=== PATIENT | male | born 1950 | race Caucasian/White ===

== ENCOUNTER 2016-08-28 19:42 | Inpatient (IN) | payer OTHER ==
[~2016-08-28] VITALS: Ht 175.3 cm; Wt 66.3 kg
[2016-08-28 20:32] LABS: HEMATOCRIT 43.6 % (38.0-50.0); MCH 33.8 PG (29.0-34.0); MCHC 35.1 G/DL (30.0-36.0); MCV 96.5 FL (86-99); PLATELET COUNT 169 K/uL (156-360); RBC DIS.WIDTH-CV 13.2 % (11.8-14.6); RBC DIS.WIDTH-SD 47.1 % (39-53); RED BLOOD COUNT 4.52 M/uL (4.00-5.50); WHITE BLOOD COUNT 14.3 K/uL (4.1-10.2)
[2016-08-28 20:39] LABS: CHLORIDE 91 mEq/L (99-109); POTASSIUM 4.2 mEq/L (3.7-5.4); SODIUM 126 mEq/L (136-147)
[2016-08-28 20:41] LABS: GLUCOSE 146 mg/dL (70-99)
[2016-08-28 20:42] LABS: ANION GAP 18 MEQ/L (2-14)
[2016-08-28 20:45] LABS: GFR ESTIMATE (CALCULATED) 11 mL/min/
[2016-08-28 20:46] LABS: UREA NITROGEN (BUN) 57 mg/dL (9-23)
[2016-08-28 20:52] LABS: TROP-I INTERPRETATION NEGATIVE; TROPONIN-I 0.04 ng/mL (0.0-0.30)
[2016-08-28 21:12] LABS: TOTAL BILIRUBIN 0.4 mg/dL (0.0-1.0)
[2016-08-28 21:13] LABS: ALKALINE PHOSPHATASE 72 IU/L (3-129)
[2016-08-28 21:16] LABS: DIRECT BILIRUBIN 0.2 mg/dL (0.0-0.3)
[2016-08-28 21:17] LABS: LIPASE 43 U/L (1.0-51.0)
[2016-08-28] MEDS ORDERED: SIMVASTATIN20 MG PO (23:16)
[2016-08-28] MEDS ORDERED: LOTENSIN10 MG PO (23:16)
[2016-08-28] MEDS ORDERED: ADVIL,NUPRIN,M200 MG PO (23:17)
[2016-08-29] VITALS (7 sets, daily range): BP systolic 129–157; BP diastolic 66–87
[2016-08-29 02:42] LABS: BASE EXCESS -6.4 mEq/L (-3 to +3); BICARBONATE 18.2 mEq/L (22-26); CARBOXY HGB 1.5 % (0-5); COMMENTS - BLOOD GASES C+; DEVICE NCH; METHEMOGLOBIN 1.3 % (0-1.5); O2 FLOW 10 L/MIN; PCO2 33 mm Hg (35-45); PO2 88 mm Hg (80-100); SITE LR; pH 7.35 (7.35-7.45)
[2016-08-29 02:43] LABS: MECHANICAL RATE 16 resp/min
[2016-08-29 03:05] LABS: D-DIMER ELISA 1.05 mg/L FEU (< 0.57)
[2016-08-29 03:19] LABS: TROP-I INTERPRETATION NEGATIVE; TROPONIN-I 0.03 ng/mL (0.0-0.30)
[2016-08-29 04:03] LABS: MAGNESIUM 2.3 mg/dL (1.3-2.7)
[2016-08-29 04:06] LABS: INTER. NORMALIZED RATIO 0.9; PTT 31.4 (25-32)
[2016-08-29 04:15] LABS: PROTHROMBIN TIME 9.4 (9.2-11.2)
[2016-08-29 07:19] LABS: ADD MIUA? YES; BILIRUBIN NEGATIVE; BLOOD MODERATE; COLOR YELLOW ((YELLOW)); GLUCOSE (STRIP) NEGATIVE; KETONES NEGATIVE; LEUKOCYTES NEGATIVE; NITRITE NEGATIVE; PROTEIN (STRIP) 30; SPECIFIC GRAVITY 1.012 (1.000-1.030); UROBILINOGEN 0.2 MG/DL (0.2-1.0)
[2016-08-29 08:06] LABS: BACTERIA 1+ /HPF; BUDDING YEAST 2+; EPITHELIAL CELLS NONE SEEN /HPF; GRANULAR CASTS 0-5 /LPF; HYALINE CASTS 0-5 /LPF; MUCUS TRACE /LPF; RED BLOOD CELLS 0-5 /HPF (0-5); UCUL ADDED? NO; WHITE BLOOD CELLS 0-5 /HPF (0-5)
[2016-08-29 09:15] LABS: TROP-I INTERPRETATION NEGATIVE; TROPONIN-I 0.02 ng/mL (0.0-0.30)
[2016-08-29 10:21] LABS: ALKALINE PHOSPHATASE 60 IU/L (3-129); ANION GAP 12 MEQ/L (2-14); CHLORIDE 99 MEQ/L (99-109); GLUCOSE 187 mg/dL (70-99); POTASSIUM 3.9 MEQ/L (3.7-5.4); SAMPLE HEMOLYSIS CHECK 0; SAMPLE ICTERIC CHECK 0; SAMPLE LIPEMIA CHECK 0; SODIUM 127 MEQ/L (136-147); TOTAL BILIRUBIN 0.3 MG/DL (0.0-1.0); UREA NITROGEN (BUN) 47 mg/dL (9-23)
[2016-08-29 10:22] LABS: GFR ESTIMATE (CALCULATED) 25 mL/min/
[2016-08-29 12:26] LABS: HEMATOCRIT 41.7 % (38.0-50.0); MCH 33.9 PG (29.0-34.0); MCHC 34.3 G/DL (30.0-36.0); MCV 98.8 FL (86-99); MEAN PLAT.VOLUME 10.2 uM^3 (9.0-12.4); PLATELET COUNT 155 K/uL (156-360); RBC DIS.WIDTH-CV 13.3 % (11.8-14.6); RED BLOOD COUNT 4.22 M/uL (4.00-5.50); WHITE BLOOD COUNT 13.1 K/uL (4.1-10.2)
[2016-08-29 13:02] LABS: EOSINOPHIL (%) 0 % (0-5); IMMATURE GRANULOCYTE (%) 0.6 % (0.0-0.7); IMMATURE GRANULOCYTE COUNT 0.1 K/uL; INSTRUMENT ABS NEUTROPHIL CT 12.1 K/uL; LYMPHOCYTE COUNT 0.5 K/uL (1.0-2.8); MONOCYTE (%) 2.8 % (3-12); MONOCYTE COUNT 0.4 K/uL (0-0.8); NEUTROPHIL (%) 92.4 % (45-76); NEUTROPHIL COUNT 12.1 K/uL (1.8-6.4)
[2016-08-29 22:33] LABS: INFLUENZA A VIRAL ANTIGEN NEGATIVE; INFLUENZA B VIRAL ANTIGEN POSITIVE
[2016-08-30] VITALS (7 sets, daily range): BP systolic 139–168; BP diastolic 69–81
[2016-08-30 06:33] LABS: HEMATOCRIT 37.2 % (38.0-50.0); MCH 33.8 PG (29.0-34.0); MCHC 34.1 G/DL (30.0-36.0); MCV 98.9 FL (86-99); MEAN PLAT.VOLUME 10.2 uM^3 (9.0-12.4); PLATELET COUNT 176 K/uL (156-360); RBC DIS.WIDTH-CV 13.4 % (11.8-14.6); RED BLOOD COUNT 3.76 M/uL (4.00-5.50); WHITE BLOOD COUNT 11.5 K/uL (4.1-10.2)
[2016-08-30 06:53] LABS: ALKALINE PHOSPHATASE 54 IU/L (3-129); ANION GAP 9 MEQ/L (2-14); CHLORIDE 104 MEQ/L (99-109); DIRECT BILIRUBIN 0.1 mg/dL (0.0-0.3); GLUCOSE 164 mg/dL (70-99); SAMPLE HEMOLYSIS CHECK 0; SAMPLE ICTERIC CHECK 0; SAMPLE LIPEMIA CHECK 0; TOTAL BILIRUBIN 0.3 MG/DL (0.0-1.0); UREA NITROGEN (BUN) 30 mg/dL (9-23); URIC ACID 3.5 mg/dL (3.1-9.2)
[2016-08-30 06:55] LABS: GFR ESTIMATE (CALCULATED) 59 mL/min/; POTASSIUM 4.7 MEQ/L (3.7-5.4); SODIUM 135 MEQ/L (136-147)
[2016-08-30 07:04] LABS: EOSINOPHIL (%) 0 % (0-5); IMMATURE GRANULOCYTE COUNT 0.4 K/uL; INSTRUMENT ABS NEUTROPHIL CT 9.9 K/uL; LYMPHOCYTE COUNT 0.6 K/uL (1.0-2.8); MONOCYTE (%) 5.6 % (3-12); MONOCYTE COUNT 0.6 K/uL (0-0.8); NEUTROPHIL (%) 86.1 % (45-76); NEUTROPHIL COUNT 9.9 K/uL (1.8-6.4)
[2016-08-30 08:02] LABS: INTERNAL CONTROL VALID? YES
[2016-08-30 14:21] LABS: METH RESISTANT S AUREUS PCR NEGATIVE (NEGATIVE)
[2016-08-30 14:26] LABS: PROBE CHECK PASS; SPECIMEN PROCESSING CONTROL PASS
[2016-08-31 04:06] VITALS: BP 127/63
[2016-08-31 06:29] LABS: HEMATOCRIT 34.4 % (38.0-50.0); MEAN PLAT.VOLUME 10.1 uM^3 (9.0-12.4); PLATELET COUNT 211 K/uL (156-360); RBC DIS.WIDTH-CV 13.6 % (11.8-14.6); RBC DIS.WIDTH-SD 50.1 % (39-53); RED BLOOD COUNT 3.44 M/uL (4.00-5.50); WHITE BLOOD COUNT 8.5 K/uL (4.1-10.2)
[2016-08-31 06:54] LABS: ANION GAP 8 MEQ/L (2-14); CHLORIDE 105 MEQ/L (99-109); GFR ESTIMATE (CALCULATED) > 59 mL/min/; GLUCOSE 209 mg/dL (70-99); MAGNESIUM 2.2 mg/dl (1.3-2.7); POTASSIUM 3.9 MEQ/L (3.7-5.4); SAMPLE HEMOLYSIS CHECK 0; SAMPLE ICTERIC CHECK 0; SAMPLE LIPEMIA CHECK 0; SODIUM 137 MEQ/L (136-147); UREA NITROGEN (BUN) 24 mg/dL (9-23)
[2016-08-31 07:21] VITALS: BP 128/72
[2016-08-31 09:44] LABS: EOSINOPHIL (%) 0 % (0-5); IMMATURE GRANULOCYTE (%) 2.2 % (0.0-0.7); IMMATURE GRANULOCYTE COUNT 0.2 K/uL; LYMPHOCYTE COUNT 0.5 K/uL (1.0-2.8); MONOCYTE (%) 9.7 % (3-12); MONOCYTE COUNT 0.8 K/uL (0-0.8); NEUTROPHIL (%) 82.7 % (45-76)
[2016-08-31 11:44] VITALS: BP 150/74
[2016-08-31 16:25] VITALS: BP 154/77
[2016-08-31 20:20] VITALS: BP 140/66
[2016-08-31 20:44] LABS: Neutrophil Cytoplasmic Aby Negative (Negative)
[2016-09-01] VITALS (7 sets, daily range): BP systolic 134–174; BP diastolic 67–84
[2016-09-01 06:57] LABS: HEMATOCRIT 35.7 % (38.0-50.0); MCH 33.4 PG (29.0-34.0); MCHC 33.3 G/DL (30.0-36.0); MCV 100.3 FL (86-99); MEAN PLAT.VOLUME 9.9 uM^3 (9.0-12.4); PLATELET COUNT 247 K/uL (156-360); RBC DIS.WIDTH-CV 13.5 % (11.8-14.6); RBC DIS.WIDTH-SD 50.5 % (39-53); RED BLOOD COUNT 3.56 M/uL (4.00-5.50); WHITE BLOOD COUNT 9.4 K/uL (4.1-10.2)
[2016-09-01 07:21] LABS: ANION GAP 8 MEQ/L (2-14); CHLORIDE 104 MEQ/L (99-109); GFR ESTIMATE (CALCULATED) > 59 mL/min/; GLUCOSE 126 mg/dL (70-99); POTASSIUM 3.9 MEQ/L (3.7-5.4); SAMPLE HEMOLYSIS CHECK 0; SAMPLE ICTERIC CHECK 0; SAMPLE LIPEMIA CHECK 0; SODIUM 139 MEQ/L (136-147); UREA NITROGEN (BUN) 21 mg/dL (9-23)
[2016-09-01 07:34] LABS: EOSINOPHIL (%) 0 % (0-5); IMMATURE GRANULOCYTE COUNT 0.1 K/uL; INSTRUMENT ABS NEUTROPHIL CT 6.9 K/uL; LYMPHOCYTE COUNT 1.1 K/uL (1.0-2.8); MONOCYTE (%) 14.7 % (3-12); MONOCYTE COUNT 1.4 K/uL (0-0.8); NEUTROPHIL (%) 72.7 % (45-76); NEUTROPHIL COUNT 6.9 K/uL (1.8-6.4)
[2016-09-01 09:08] LABS: POINT-OF-CARE METER ID UU13113781
[2016-09-02 03:18] VITALS: BP 155/72
[2016-09-02 07:52] VITALS: BP 163/79
[2016-09-02 11:28] VITALS: BP 154/75
[2016-09-02] MEDS ORDERED: AMOX TR-K CLV1 EAC4 PO (12:50)
[2016-09-02] MEDS ORDERED: OSELTAMIVIR PHO75 MG PO (12:50)
[2016-09-02] MEDS ORDERED: AMLODIPINE BESYL5 MG PO (12:50)
[2016-09-02] MEDS ORDERED: PRILOSEC20 MG PO (12:50)
[2016-09-02] MEDS ORDERED: ADVAIR 250/501 DISK IH (12:52)
[2016-09-02] MEDS ORDERED: VENTOLIN HFA18 GM IH (12:52)
[2016-09-02] MEDS ORDERED: SPIRIVA1 INHALATI IH (12:52)
[2016-09-02] MEDS ORDERED: PREDNISONE10 MG PO (13:06)
[2016-09-02] MEDS ORDERED: NICODERM CQ1 EAC1 TD (13:52)
== END 2016-09-02 15:40 | disposition home health service (06) | DRG 190 ==
LOC: EME 19:42 → 4SOUTH 08-29 02:37 → EDOF 08-29 02:37 → 4EAST 08-29 02:37 → 4SOUTH 08-29 04:53 → 4EAST 08-29 19:36
PROVIDERS: Hospitalist; Internal Medicine Nephrology; Student in an Organized Health Care Education/Training Program
DX: J44.1 Chronic obstructive pulmonary disease with (acute) exacerbation (principal); J44.0 Chronic obstructive pulmonary disease with (acute) lower respiratory infection; J18.9 Pneumonia, unspecified organism; I10 Essential (primary) hypertension; R10.13 Epigastric pain; J96.01 Acute respiratory failure with hypoxia; E78.00 Pure hypercholesterolemia, unspecified; Z82.49 Family history of ischemic heart disease and other diseases of the circulatory system; E87.1 Hypo-osmolality and hyponatremia; N17.0 Acute kidney failure with tubular necrosis; E87.2 Acidosis; F10.20 Alcohol dependence, uncomplicated; E86.0 Dehydration; J10.08 Influenza due to other identified influenza virus with other specified pneumonia; Z71.6 Tobacco abuse counseling; F17.210 Nicotine dependence, cigarettes, uncomplicated
CPT/HCPCS: 36600; 71020; 71250; 76770; 78582; 80048; 80053; 80076; 81003; 82570; 82803; 82948; 83605; 83690; 83735; 83935; 84100; 84156; 84439; 84443; 84484; 84550; 85025; 85027; 85379; 85610; 85730; 86021 90; 86038; 87040; 87070; 87205; 87449; 87502; 87641; 93005; 93306; 93970; 94640; 94640 76; 94799; 99202; 99281; 99285; A9540; A9567; J0360; J0456; J0696; J1100; J1815; J2060; J2543; J2920; J2930; J3370; J3475; J7030; J7050; J7512

== ENCOUNTER 2017-06-21 21:55 | Emergency (ER) | payer OTHER ==
[~2017-06-21] VITALS: Ht 177.8 cm; Wt 70.1 kg
[~2017-06-21 21:55] MED LIST: ADVAIR 250/501 DISK IH; ADVIL,NUPRIN,M200 MG PO; AMLODIPINE BESYL5 MG PO; AMOX TR-K CLV1 EAC4 PO; LOTENSIN10 MG PO; NICODERM CQ1 EAC1 TD; OSELTAMIVIR PHO75 MG PO; PREDNISONE10 MG PO; PRILOSEC20 MG PO; SIMVASTATIN20 MG PO; SPIRIVA1 INHALATI IH; VENTOLIN HFA18 GM IH
[2017-06-22 01:52] VITALS: BP 155/90
== END 2017-06-22 01:52 | disposition home or self-care (01) ==
LOC: EME → EDBD 21:55 → EME 06-22 01:52
DX: S00.93XA Contusion of unspecified part of head, initial encounter (principal); S01.81XA Laceration without foreign body of other part of head, initial encounter; S61.012A Laceration without foreign body of left thumb without damage to nail, initial encounter; F10.129 Alcohol abuse with intoxication, unspecified; Y90.9 Presence of alcohol in blood, level not specified; Z23 Encounter for immunization; W18.30XA Fall on same level, unspecified, initial encounter; Y92.481 Parking lot as the place of occurrence of the external cause; F17.200 Nicotine dependence, unspecified, uncomplicated
CPT/HCPCS: 70450; 73130; 99281; 99284